=== PATIENT | female | born 1975 | race Caucasian/White ===

== ENCOUNTER 2017-11-04 13:55 | Outpatient (CLI) | payer BC | END 2017-11-04 13:56 | disposition home or self-care (01) | LOC: BICMAMMO 13:55 | PROVIDERS: ATTEND Advanced Practice Midwife | DX: Z12.31 Encounter for screening mammogram for malignant neoplasm of breast (principal) | CPT/HCPCS: 77063; 77067 ==

== ENCOUNTER 2019-02-07 07:09 | Outpatient (CLI) | payer BC ==
--- NOTE | 2019-02-07 07:42 | ULT ---
Soft tissue sonogram left lower leg HISTORY: Left leg lump. FINDINGS: Sonographic evaluation of the medial aspect of the left lower leg in region of palpable con cern shows some edematous stranding within the subcutaneous tissues. No solid or cystic masses. IMPRESSION: No significant abnormalities are demonstrated.
== END 2019-02-07 07:10 | disposition home or self-care (01) ==
LOC: SCSULT 07:09
PROVIDERS: ATTEND Family Medicine
DX: M79.605 Pain in left leg (principal)
CPT/HCPCS: 76882

== ENCOUNTER 2021-11-24 09:10 | Outpatient (CLI) | payer BC ==
[2021-11-24 21:12] LABS: SARS-CoV-2 PCR by NAA Not Detected (NotDetected)
== END 2021-11-24 09:11 | disposition home or self-care (01) ==
LOC: LABBT 09:10
PROVIDERS: ATTEND Internal Medicine Gastroenterology
DX: Z12.11 Encounter for screening for malignant neoplasm of colon (principal); Z20.822 Contact with and (suspected) exposure to COVID-19
CPT/HCPCS: U0003; U0005

== ENCOUNTER 2021-11-27 05:56 | Day surgery (SDC) | payer BC ==
[2021-11-26 10:07] VITALS: BMI 63.7
[2021-11-27] MEDS ORDERED: Lidocaine 1% PF 5 ML VIAL ONE (08:24)
[2021-11-27] MEDS ORDERED: PROPOFOL 200 MG/20 ML VIAL ONE (08:24)
== END 2021-11-27 10:02 | disposition home or self-care (01) ==
LOC: SDC 05:56
PROVIDERS: ATTEND Internal Medicine Gastroenterology
PROC: 0DBN8ZX Excision of Sigmoid Colon, Via Natural or Artificial Opening Endoscopic, Diagnostic (ICD-10-PCS; principal; 2021-11-27)
DX: Z12.11 Encounter for screening for malignant neoplasm of colon (principal); D12.5 Benign neoplasm of sigmoid colon; K57.30 Diverticulosis of large intestine without perforation or abscess without bleeding; E11.9 Type 2 diabetes mellitus without complications; E66.9 Obesity, unspecified; Z68.44 Body mass index [BMI] 60.0-69.9, adult; Z79.84 Long term (current) use of oral hypoglycemic drugs; Z79.899 Other long term (current) drug therapy
CPT/HCPCS: 88305; J2704